=== PATIENT | male | born 1980 | race Caucasian/White ===

== ENCOUNTER 2023-06-29 00:50 | Emergency (ER) | payer OTHER ==
[~2023-06-29] VITALS: Ht 185.4 cm; Wt 97.4 kg
[2023-06-29] MEDS ORDERED: SODIUM CHLORIDE 0.9% 1,000 ML IV ONE (01:00)
[2023-06-29] MEDS ORDERED: SUMAtriptan succinate 6 MG/0.5 ML VIAL SUB-Q ONE (01:00)
[2023-06-29] MEDS ORDERED: KETOROLAC TROMETHAMINE 30 MG/ML VIAL IV ONE (01:00)
[2023-06-29] MEDS ORDERED: diphenhydrAMINE HCL 50 MG/ML VIAL IV ONE (01:00)
[2023-06-29] MEDS ORDERED: METOCLOPRAMIDE HCL 10 MG/2 ML SDV IV ONE (01:00)
[2023-06-29] MEDS ORDERED: ONDANSETRON ODT8 MG PO ×2 (01:58→02:30)
[2023-06-29] MEDS ORDERED: IMITREX50 MG PO ×2 (02:03→02:30)
[2023-06-29] MEDS ORDERED: ONDANSETRON 4 MG HOME.PACK SL ONE (02:15)
[2023-06-29] MEDS ORDERED: methylPREDNISolone 4 MG HOME.PACK PO ONE (02:15)
[2023-06-29 02:25] VITALS: BP 125/65
== END 2023-06-29 02:26 | disposition home or self-care (01) ==
LOC: ED 00:50
DX: G44.009 Cluster headache syndrome, unspecified, not intractable (principal); Z88.8 Allergy status to other drugs, medicaments and biological substances
CPT/HCPCS: 96374; 96375; 99283-25; A9270; J1200; J1885; J2765; J3030; J7030

== ENCOUNTER 2024-03-02 21:51 | Emergency (ER) | payer OTHER ==
[~2024-03-02] VITALS: Ht 185.4 cm; Wt 97.5 kg
[~2024-03-02 21:51] MED LIST: IMITREX50 MG PO; ONDANSETRON ODT8 MG PO
[2024-03-02] MEDS ORDERED: TRAZODONE HCL5 GM (22:01)
[2024-03-02 23:33] VITALS: BP 133/78
== END 2024-03-02 23:33 | disposition home or self-care (01) ==
LOC: ED 21:51
DX: S61.211A Laceration without foreign body of left index finger without damage to nail, initial encounter (principal); Z88.8 Allergy status to other drugs, medicaments and biological substances; W26.0XXA Contact with knife, initial encounter
CPT/HCPCS: 99283